=== PATIENT | female | born 1980 | race Caucasian/White ===

== ENCOUNTER 2017-04-11 09:09 | Emergency (ER) | payer OTHER ==
[~2017-04-11] VITALS: Ht 170.2 cm; Wt 86.0 kg
[~2017-04-11 09:09] MED LIST: BACT800T5 PO; CEPH500C3 PO; IBUP600 PO; OXYC1SOL5 PO; PREN0.01 PO; ZOFR4TAB3 PO
[2017-04-11 09:11] VITALS: BP 150/83; PULSE 104; RESP 16; TEMP 98.4; O2SAT 98
--- NOTE | 2017-04-11 11:37 | PD ---
HPI Chief Complaint: Pain: Acute or Chronic Time Seen by Provider: 11:37 Travel History International Travel<30 days: No Contact w/Intl Traveler<30days: No Traveled to known affect area: No History of Present Illness HPI 37 YO F since the ED for evaluation of one month history of 3/10 intermittent dull, fleeting, left-sided chest pain and palpitations. The patient states that she "will randomly feel my heart skip a beat" which causes her to become very anxious. She states that the anxiety causes her heart to pound and to feel short of breath. She denies associated nausea, vomiting, diaphoresis. She denies any recent long period of immobilization. She does not take oral contraception. She has a [id number] smoking history, quit in 2009. Denies family history of KS. Describes herself as moderately active. The patient is currently menstruating, endorses history of tubal ligation. She is prescribed Xanax and buspirone for her anxiety but has been noncompliant until yesterday. She states that she had a EKG at her primary care providers yesterday that was "mostly normal." She was referred to Dr. Mayo and has an appointment at the beginning of next month. PFSH Past Medical History Diminished Hearing: No ?: Not : 3 Para: 1 Miscarriage: 1 Tubal Ligation: Yes Past Surgical History Abdominal Surgery: Yes (HERNIA CHILD) AICD: No Section: Yes Gynecologic Surgery: Yes Joint Replacement: No Pacemaker: No Other Surgery: Yes (INGUINAL HERNIA A CHILD) Social History Alcohol Use: No Tobacco Use: No Substance Use: No Allergies-Medications (Allergen,Severity, Reaction): Coded Allergies: No Known Allergies (Unverified , 04/11/17) Reported Meds & Prescriptions Reported Meds & Active Scripts Active Reported Xanax (Alprazolam) 0.25 Mg Tab 0.25 Mg PO Q12HR PRN Buspirone (Buspirone HCl) 5 Mg Tab 5 Mg PO BID Review of Systems Except as stated in HPI: all other systems reviewed are Neg Physical Exam Narrative GENERAL: Well-nourished, well-developed white female in no acute distress. SKIN: Focused skin assessment warm/dry. HEAD: Normocephalic. EYES: No scleral icterus. No injection or drainage. NECK: Supple, trachea midline. No JVD or lymphadenopathy. CARDIOVASCULAR: Regular rate and rhythm without murmurs, gallops, or rubs. RESPIRATORY: Breath sounds clear and equal bilaterally. No accessory muscle use. GASTROINTESTINAL: Abdomen soft, non-tender, nondistended. Active bowel sounds. MUSCULOSKELETAL: No cyanosis, or edema. Hohmann sign negative bilaterally. BACK: Nontender without obvious deformity. No CVA tenderness. Data Data Last Documented VS Vital Signs Date Time Temp Pulse Resp B/P Pulse Ox O2 Delivery O2 Flow Rate FiO2 04/11/17 11:57 97 Room Air 04/11/17 11:57 84 21 04/11/17 09:11 98.4 Orders Electrocardiogram (04/11/17 ) Ckmb (Isoenzyme) Profile (04/11/17 11:51) Complete Blood Count With Diff (04/11/17 11:51) Comprehensive Metabolic Panel (04/11/17 11:51) Magnesium (Mg) (04/11/17 11:51) Prothrombin Time / Inr (Pt) (04/11/17 11:51) Act Partial Throm Time (Ptt) (04/11/17 11:51) Troponin I (04/11/17 11:51) Chest, Single Ap (04/11/17 11:51) Ecg Monitoring (04/11/17 11:51) Bilateral Bp Monitoring (04/11/17 11:51) Iv Access Insert/Monitor (04/11/17 11:51) Oximetry (04/11/17 11:51) Sodium Chloride 0.9% Flush (Ns Flush) (04/11/17 12:00) Thyroid Stimulating Hormone (04/11/17 11:51) D-Dimer (04/11/17 12:01) Labs Laboratory Tests Test 04/11/17 11:50 White Blood Count 12.0 TH/MM3 Red Blood Count 4.23 MIL/MM3 Hemoglobin 14.2 GM/DL Hematocrit 40.9 % Mean Corpuscular Volume 96.7 FL Mean Corpuscular Hemoglobin 33.6 PG Mean Corpuscular Hemoglobin 34.7 % Concent Red Cell Distribution Width 12.7 % Platelet Count 184 TH/MM3 Mean Platelet Volume 9.4 FL Neutrophils (%) (Auto) 75.2 % Lymphocytes (%) (Auto) 17.2 % Monocytes (%) (Auto) 6.1 % Eosinophils (%) (Auto) 0.8 % Basophils (%) (Auto) 0.7 % Neutrophils # (Auto) 9.0 TH/MM3 Lymphocytes # (Auto) 2.1 TH/MM3 Monocytes # (Auto) 0.7 TH/MM3 Eosinophils # (Auto) 0.1 TH/MM3 Basophils # (Auto) 0.1 TH/MM3 CBC Comment DIFF FINAL Differential Comment Prothrombin Time 11.8 SEC Prothromb Time International 1.1 RATIO Ratio Activated Partial 26.7 SEC Thromboplast Time D-Dimer Quantitative (PE/DVT) 0.29 MG/L FEU Sodium Level 141 MEQ/L Potassium Level 4.1 MEQ/L Chloride Level 107 MEQ/L Carbon Dioxide Level 26.1 MEQ/L Anion Gap 8 MEQ/L Blood Urea Nitrogen 11 MG/DL Creatinine 0.71 MG/DL Estimat Glomerular Filtration 93 ML/MIN Rate Random Glucose 107 MG/DL Calcium Level 8.7 MG/DL Magnesium Level 2.2 MG/DL Total Bilirubin 0.5 MG/DL Aspartate Amino Transf 11 U/L (AST/SGOT) Alanine Aminotransferase 20 U/L (ALT/SGPT) Alkaline Phosphatase 54 U/L Total Creatine Kinase 68 U/L Troponin I LESS THAN 0.02 NG/ML Total Protein 7.3 GM/DL Albumin 3.8 GM/DL Thyroid Stimulating Hormone 0.915 uIU/ML [address] [place] [address] Medical Decision Making Medical Screen Exam Complete: Yes Emergency Medical Condition: Yes Differential Diagnosis arrhythmia versus anxiety versus PE versus less likely ACS versus electrolyte abnormality versus thyroid abnormality versus anemia versus other Narrative Course 37 YO F since the ED for evaluation of one month history of 3/10 intermittent "dull, fleeting" left-sided chest pain and palpitations. The patient states that she "will randomly feel my heart skip a beat" which causes her to become very anxious. She states that this triggers further palpitations and shortness of breath. She denies associated nausea, vomiting, diaphoresis, recent long period of immobilization. She does not take oral contraception. She has a two- pack-year smoking history, quit in 2009. Denies family history of KS. Describes herself as moderately active. Vitals reviewed. The patient is tachycardic and hypertensive in triage but this resolves in the exam room. Physical exam reveals a nontoxic-appearing white female in no acute distress. Chest is CTAP, no appreciable M/R/G. No lower extremity edema. Homans sign negative bilaterally. EKG rate 84, sinus rhythm. SC interval 129, QRS 94, QTC 396 ms. Normal axis. No ST changes. Reviewed by Dr. Hughes. CXR: No acute disease per radiology read. Cardiac enzymes negative 1. D- dimer 0.29. TSH: 0.915. Mild elevation of the white count, CMP unremarkable. The patient had an episode of symptoms in the ED. We reviewed the EKG from the monitor. Rate 104-11,no acute changes ST changes . I discussed the patient, workup and plan with Dr. Hughes. I discussed the results of the workup in detail with the patient and her . Given the negative workup here coupled with her low risk factors and cardiac follow-up I feel she is safe for discharge. She is instructed to take her antianxiety medications as prescribed, consult her primary care as needed for medication increases, follow-up with Dr. Sommers as planned. The patient and her indicated understanding of these instructions and are agreeable to this care plan. The patient is stable and discharged home. Diagnosis Primary Impression: Intermittent palpitations Referrals: Black Mayo MD Patient Instructions: General Instructions, Palpitations (ED) Additional Instructions: Rest, hydrate. Resume normal, gentle activities as tolerated. Take antianxiety medications as prescribed. Follow up with Dr. Mayo as planned. Return to the ED for any urgent or emergent medical condition. Disposition: 01 DISCHARGE HOME Condition: Stable Sadia Phoenix Apr 11, 2017 11:37
[2017-04-11 11:43] VITALS: BP 122/68; PULSE 77; RESP 24; O2SAT 98
[2017-04-11 11:57] VITALS: BP_SYST 116; BP_SYST 122; BP_DIAS 68; BP_DIAS 77; PULSE 84; RESP 21; O2SAT 97
[2017-04-11] MEDS ORDERED: SODIUM CHLORIDE 0.9% FLUSH 10 ML FLUSH IVF PRN (12:00)
[2017-04-11 12:11] LABS: BASOPHIL # 0.1 TH/MM3 (0-0.2); BASOPHIL % 0.7 % (0.0-2.0); EOSINOPHIL # 0.1 TH/MM3 (0-0.4); EOSINOPHIL % 0.8 % (0.0-4.0); HEMATOCRIT 40.9 % (35.0-46.0); HEMO FLAGS DIFF FINAL; LYMPH % 17.2 % (9.0-44.0); LYMPHOCYTE # 2.1 TH/MM3 (1.0-4.8); MEAN CELL VOLUME 96.7 FL (80.0-100.0); MEAN CORPUSCULAR HEMOGLOBIN 33.6 PG (27.0-34.0); MEAN CORPUSCULAR HGB CONC 34.7 % (32.0-36.0); MONO % 6.1 % (0.0-8.0); NEUT % 75.2 % (16.0-70.0); PLATELET COUNT 184 TH/MM3 (150-450); RED BLOOD COUNT 4.23 MIL/MM3 (4.00-5.30); RED CELL DISTRIBUTION WIDTH 12.7 % (11.6-17.2)
[2017-04-11 12:22] LABS: APTT (PATIENT) 26.7 SEC (24.3-30.1); INTERNATIONAL NORMALIZED RATIO 1.1 RATIO; PROTHROMBIN TIME - PATIENT 11.8 SEC (9.8-11.6)
[2017-04-11 12:34] LABS: ALT (GPT) 20 U/L (10-53); ANION GAP 8 MEQ/L (5-15); AST (GOT) 11 U/L (15-37); BICARBONATE 26.1 MEQ/L (21.0-32.0); BLOOD UREA NITROGEN 11 MG/DL (7-18); CHLORIDE 107 MEQ/L (98-107); GLOMERULAR FILTRATION RATE 93 ML/MIN (>89); MAGNESIUM 2.2 MG/DL (1.5-2.5); POTASSIUM 4.1 MEQ/L (3.5-5.1); SODIUM (NA) 141 MEQ/L (136-145)
[2017-04-11 12:44] LABS: ALKALINE PHOSPHATASE 54 U/L (45-117); TOTAL BILIRUBIN ADULT 0.5 MG/DL (0.2-1.0)
--- NOTE | 2017-04-11 12:44 | RADRPT ---
EXAM DATE/TIME: 04/11/2017 11:54 [facility] COMPARISON: No previous studies available for comparison. INDICATIONS : Chest pain and shortness of breath. Possible panic attack. MEDICAL HISTORY : None. SURGICAL HISTORY : None. ENCOUNTER: Initial ACUITY: 1 day PAIN SCORE: 3/10 LOCATION: Bilateral chest Lower left side FINDINGS: A single view of the chest demonstrates the lungs to be symmetrically aerated without evidence of mas s, infiltrate or effusion. The cardiomediastinal contours are unremarkable. Osseous structures are intact. CONCLUSION: No acute disease. Ray Gao MD on April 11, 2017 at 12:42 Board Certified Radiologist. This report was verified electronically.
[2017-04-11 12:47] LABS: CREATINE KINASE 68 U/L (26-192)
[2017-04-11] MEDS ORDERED: BUSP5TAB PO (13:11)
[2017-04-11] MEDS ORDERED: ALPR.25 PO (13:11)
--- NOTE | 2017-04-11 14:54 | EKG ---
Date Performed: 04/11/2017 Time Performed: 09:30:24 PTAGE: 37 years EKG: Sinus rhythm LEFT ATRIAL ENLARGEMENT ABNORMAL ECG PREVIOUS TRACING : 05/29/2016 12.37 DOCTOR: Jenifer Cadet Interpretating Date/Time 04/11/2017 14:51:33
== END 2017-04-11 13:33 | disposition home or self-care (01) ==
LOC: NEPD 11:05
DX: R00.2 Palpitations (principal); R07.9 Chest pain, unspecified; R06.02 Shortness of breath; R00.0 Tachycardia, unspecified; R94.31 Abnormal electrocardiogram [ECG] [EKG]; F41.9 Anxiety disorder, unspecified; Z79.899 Other long term (current) drug therapy
CPT/HCPCS: 71010; 80053; 82550; 83735; 84443; 84484; 85025; 85379; 85610; 85730; 93005; 99285

== ENCOUNTER 2017-05-23 16:26 | Emergency (ER) | payer OTHER ==
[~2017-05-23 16:26] MED LIST changes: +ALPR.25 PO; -BACT800T5 PO; +BUSP5TAB PO; -CEPH500C3 PO; -IBUP600 PO; -OXYC1SOL5 PO; -PREN0.01 PO; -ZOFR4TAB3 PO
[2017-05-23 16:34] VITALS: BP 150/90; PULSE 97; RESP 0; RESP 20; TEMP 99.5
[2017-05-23] MEDS ORDERED: ZOLO25TA PO (16:39)
[2017-05-23] MEDS ORDERED: LORazepam 2 MG/ML VIAL IV PUSH SCH (17:00)
--- NOTE | 2017-05-23 17:20 | PD ---
HPI . Elevated blood pressure Chief Complaint: Anxiety Time Seen by Provider: 16:51 Travel History International Travel<30 days: No Contact w/Intl Traveler<30days: No Traveled to known affect area: No History of Present Illness HPI This patient presents with the chief complaint of elevated blood pressure. Patient reports he onset of palpitations, shortness of breath and headache last night. She states that she started monitoring her blood pressure. Blood pressure kept getting higher and higher. She subsequently presented to us for evaluation. She took a Xanax this morning with no relief of her symptoms. She states that she was just started on Zoloft yesterday for anxiety. She reports increasing symptoms over the last several she states that she has had intermittent problems for a while but that the problems have become more persistent. Her symptoms have been exacerbated by frequently rechecking her blood pressure. PFSH Past Medical History Anxiety: Yes Diminished Hearing: No Influenza Vaccination: Yes ?: Not LMP: MAY 10 : 3 Para: 1 Miscarriage: 1 Tubal Ligation: Yes Past Surgical History Abdominal Surgery: Yes (HERNIA CHILD) AICD: No Section: Yes Gynecologic Surgery: Yes Joint Replacement: No Pacemaker: No Other Surgery: Yes (INGUINAL HERNIA A CHILD) Social History Alcohol Use: Yes (occassionaly ) Tobacco Use: No Substance Use: No Allergies-Medications (Allergen,Severity, Reaction): Coded Allergies: No Known Allergies (Unverified , 05/23/17) Reported Meds & Prescriptions Reported Meds & Active Scripts Active Reported Zoloft (Sertraline HCl) 25 Mg Tab 25 Mg PO DAILY Xanax (Alprazolam) 0.25 Mg Tab 0.25 Mg PO Q12HR PRN Review of Systems Except as stated in HPI: all other systems reviewed are Neg HENT: Positive: Headaches Cardiovascular: Positive: Palpitations Respiratory: Positive: Shortness of Breath Neurologic: Positive: Paresthesia Physical Exam Narrative GENERAL: Anxious, tearful. SKIN: warm/dry. No rashes. HEAD: Normocephalic. Nontender. EYES: Pupils equal and round. No scleral icterus. No injection or drainage. ENT: No nasal bleeding or discharge. Mucous membranes pink and moist. NECK: Trachea midline. Full range of motion without pain.. CARDIOVASCULAR: Regular rate and rhythm. Heart sounds normal. RESPIRATORY: No accessory muscle use. Clear to auscultation. Breath sounds equal bilaterally. GASTROINTESTINAL: Abdomen soft. Nontender. Bowel sounds present. Nondistended. MUSCULOSKELETAL: No obvious deformities. NEUROLOGICAL: Awake and alert. No obvious cranial nerve deficits. Motor grossly within normal limits. Normal speech. PSYCHIATRIC: Anxious affect; insight and judgment normal. Data Data Last Documented VS Vital Signs Date Time Temp Pulse Resp B/P (MAP) Pulse Ox O2 Delivery O2 Flow Rate FiO2 05/23/17 17:30 90 20 128/87 (101) 96 05/23/17 16:34 99.5 Orders Orders Lorazepam Inj (Ativan Inj) (05/23/17 17:00) [facility] Medical Decision Making Medical Screen Exam Complete: Yes Emergency Medical Condition: Yes Differential Diagnosis Differential diagnosis of palpitations includes but is not limited to anxiety, SVT, aVF with RVR, VT, sinus tachycardia, PVCs Narrative Course This patient presents with elevated blood pressure, palpitations, shortness of breath and headache. She is very anxious appearing. She has been treated with Ativan. Following Ativan, the patient feels better and her blood pressure has come down. She will be discharged. Diagnosis Primary Impression: Intermittent palpitations Additional Impressions: Dyspnea Qualified Codes: R06.00 - Dyspnea, unspecified Headache Qualified Codes: G44.209 - Tension-type headache, unspecified, not intractable Patient Instructions: Anxiety (DC), General Instructions Disposition: 01 DISCHARGE HOME Condition: Stable Roselyn Veliz MD May 23, 2017 17:20
[2017-05-23 17:30] VITALS: BP 128/87; PULSE 90; RESP 20; O2SAT 96
== END 2017-05-23 17:58 | disposition home or self-care (01) ==
LOC: PHED 16:26
DX: R00.2 Palpitations (principal); R06.00 Dyspnea, unspecified; G44.209 Tension-type headache, unspecified, not intractable; F41.9 Anxiety disorder, unspecified
CPT/HCPCS: 96374; 99284; J2060